=== PATIENT | female | born 1995 | race Caucasian/White ===

== ENCOUNTER 2021-04-11 18:20 | Emergency (ER) | payer OTHER ==
[~2021-04-11] VITALS: Ht 172.7 cm; Wt 86.2 kg
--- NOTE | 2021-04-11 18:50 | NUR ---
The patient bibs due to noticed cyst in the vagina area today. Denies pain. Abdomen soft and non-distended. Will continue to monitor the patient.
--- NOTE | 2021-04-11 19:46 | NUR ---
Patient discharged to home in stable condition. Written and verbal after care instructions given. Patient verbalizes understanding of instruction.Pt ambulatory with a steady gait
[2021-04-11 19:48] VITALS: BP 118/70
== END 2021-04-11 19:49 | disposition home or self-care (01) ==
LOC: ER 18:20
DX: N89.8 Other specified noninflammatory disorders of vagina (principal)